=== PATIENT | female | born 1995 | race Caucasian/White ===

== ENCOUNTER 2018-08-04 10:58 | Inpatient (IN) | payer OTHER ==
[2018-08-04 11:57] LABS: HEMOGLOBIN 12.2 g/dl (12.0-15.5); MEAN CORPUSCULAR HEMOGLOBIN 31.4 pg (27.0-33.0); MEAN CORPUSCULAR HGB CONC 33.9 g/dl (32.0-36.5); MEAN CORPUSCULAR VOLUME 92.8 fl (80.0-96.0); PLATELET COUNT, AUTOMATED 126 10^3/uL (150-450); RED BLOOD COUNT 3.88 10^6/uL (4.00-5.40); RED CELL DISTRIBUTION WIDTH 13.1 % (11.5-14.5); WHITE BLOOD COUNT 8.5 10^3/uL (4.0-10.0)
[2018-08-04] MEDS: OXYTOCIN DRIP 30 UNITS in APPROPRIATE DILUENT 1 EA IV ×2 (16:19→20:28)
[2018-08-04] MEDS: LR 1,000 ML IV (16:19)
[2018-08-04] MEDS ORDERED: DOCUSATE SODIUM 100 MG CAP PO (20:30)
[2018-08-04] MEDS ORDERED: MEASLES,MUMPS,RUBELLA VACCINE INJ (MMR-II) (90707) SC (20:30)
[2018-08-04] MEDS ORDERED: DIBUCAINE 1% OINTMENT 30GM TOP (20:30)
[2018-08-04] MEDS: ACETAMINOPHEN 500 MG TAB PO (22:41)
[2018-08-05] MEDS ORDERED: LIDOCAINE 1% MDV 20ML VIAL As Ordered (03:31)
[2018-08-05] MEDS: IBUPROFEN 800 MG TAB PO ×2 (03:32→14:01)
[2018-08-05] MEDS: LIDOCAINE 1% MDV 20ML VIAL SC (03:45)
[2018-08-05] MEDS: PRENATAL VITAMINS CHEWABLE TABLET PO (09:41)
[2018-08-05] MEDS: ACETAMINOPHEN 500 MG TAB PO ×2 (09:42→21:59)
[2018-08-05] MEDS ORDERED: SLF 3 ML SYR IV ×2 (09:45→14:00)
[2018-08-05] MEDS: RHOGAM 300 MCG (1500 IU) INJ (J2790) IM (12:39)
[2018-08-06] MEDS: PRENATAL VITAMINS CHEWABLE TABLET PO (09:52)
[2018-08-06] MEDS: IBUPROFEN 800 MG TAB PO (09:57)
== END 2018-08-06 13:20 | disposition home or self-care (01) | DRG 775 ==
LOC: M LDI 10:58 → M OBS 23:25
PROVIDERS: Obstetrics & Gynecology
PROC: 10E0XZZ Delivery of Products of Conception, External Approach (ICD-10-PCS; principal; 2018-08-04)
PROC: 0KQM0ZZ Repair Perineum Muscle, Open Approach (ICD-10-PCS; 2018-08-04)
DX: O48.0 Post-term pregnancy (principal); Z37.0 Single live birth; Z3A.40 40 weeks gestation of pregnancy; O69.81X0 Labor and delivery complicated by cord around neck, without compression, not applicable or unspecified; O70.1 Second degree perineal laceration during delivery

== ENCOUNTER 2019-09-20 02:11 | Inpatient (IN) | payer OTHER ==
[2019-09-20] VITALS (15 sets, daily range): BP systolic 112–145; BP diastolic 70–85
[~2019-09-20] VITALS: Ht 162.6 cm; Wt 64.1 kg
[~2019-09-20 02:11] MED LIST: COLA100C5 PO; IBUP-1114 PO; NUPE10OI TOP; PRENTAB9 PO; TYLE325T5 PO
[2019-09-20 03:57] LABS: HEMATOCRIT 36.3 % (36.0-47.0); HEMOGLOBIN 11.6 g/dl (12.0-15.5); MEAN CORPUSCULAR HEMOGLOBIN 29.3 pg (27.0-33.0); MEAN CORPUSCULAR VOLUME 91.7 fl (80.0-96.0); PLATELET COUNT, AUTOMATED 126 10^3/uL (150-450); RED BLOOD COUNT 3.96 10^6/uL (4.00-5.40); WHITE BLOOD COUNT 6.3 10^3/uL (4.0-10.0)
[2019-09-20] MEDS ORDERED: LR 1,000 ML IV SCH (04:48)
[2019-09-20] MEDS ORDERED: OXYTOCIN 30 UNITS IN 0.9% NaCl 500ML IV BAG (J2590) As Ordered ONE ×2 (06:47→08:50)
[2019-09-20 08:15] LABS: CORD GAS ABE A -0.7; CORD GAS HCO3 A 23.7 MEQ/L; CORD GAS PCO2 A 38.7 mmHg; CORD GAS PH A 7.405 UNITS; CORD GAS PO2 A 44.9 mmHg; CORD GAS SBC A 23.4 MEQ/L; CORD GAS TCO2 A 24.9 MEQ/L
[2019-09-20 08:16] LABS: CORD GAS ABE V -0.6; CORD GAS HCO3 V 23.5 MEQ/L; CORD GAS O2 SAT V 90.3 %; CORD GAS PCO2 V 37.1 mmHg; CORD GAS PH V 7.42 UNITS; CORD GAS PO2 V 44.6 mmHg; CORD GAS SBC V 23.8 MEQ/L; CORD GAS TCO2 V 24.7 MEQ/L
[2019-09-20 08:17] LABS: CORD GAS O2 SAT A 81.3 %
[2019-09-20] MEDS ORDERED: ANUSOL HC CREAM 30GM TOP PRN (09:00)
[2019-09-20] MEDS ORDERED: ACETAMINOPHEN TAB 650MG DOSE (2X325MG) PO PRN (09:00)
[2019-09-20] MEDS ORDERED: OXYTOCIN DRIP 30 UNITS in IV 1 EA IV ONE (09:00)
[2019-09-20] MEDS ORDERED: IBUPROFEN 600 MG TAB PO PRN (09:00)
[2019-09-20] MEDS ORDERED: DIBUCAINE 1% OINTMENT 30GM TOP PRN (09:00)
[2019-09-20] MEDS ORDERED: METHYLERGONOVINE MALEATE 0.2 MG TAB PO PRN (09:00)
[2019-09-20] MEDS ORDERED: MEASLES,MUMPS,RUBELLA VACCINE INJ (MMR-II) (90707) SC SCH (09:00)
[2019-09-20] MEDS ORDERED: IBUPROFEN 800 MG TAB PO PRN (09:00)
[2019-09-20] MEDS ORDERED: miSOPROStol 200 MCG TAB (S0191) PR ONE (09:00)
[2019-09-20] MEDS ORDERED: OXYTOCIN INJ 10 UNITS/ML VIAL (J2590) IV ONE (09:00)
[2019-09-20] MEDS ORDERED: RHOGAM 300 MCG (1500 IU) INJ (J2790) IM SCH (09:00)
[2019-09-20] MEDS ORDERED: ACETAMINOPHEN 500 MG TAB PO PRN (09:00)
[2019-09-20] MEDS ORDERED: DOCUSATE SODIUM 100 MG CAP PO PRN (09:00)
[2019-09-20] MEDS ORDERED: MOM 30ML SUSPENSION UDC PO PRN (09:00)
[2019-09-20] MEDS ORDERED: OXYTOCIN DRIP 30 UNITS in IV 1 EA IV SCH (09:45)
[2019-09-20] MEDS: PRENATAL VITAMINS CHEWABLE TABLET PO SCH (09:46)
[2019-09-20] MEDS ORDERED: miSOPROStol 200 MCG TAB (S0191) As Ordered ONE (12:37)
--- NOTE | 2019-09-20 14:09 | HPE ---
DATE OF ADMISSION: 09/20/2019 HISTORY: A 24-year-old 3, para 1, abortus 1, last menstrual period (LMP) 12/13/2018, estimated date of confinement (EDC) 09/19/2019 at 41 weeks of gestation, active labor, 4 cm dilated. RISK FACTORS: 1. Short interval pregnancies. 2. Post dates. PAST HISTORY: 1. 12/07/2016, spontaneous at 10 weeks. 2. 08/04/2018, spontaneous vaginal delivery female, 9 pounds, with cleft lip and palate named Josette. LABORATORIES: O positive, HIV negative, hepatitis negative, rapid plasma reagin (RPR) negative, rubella immune. Varicella immune. Pap normal. Urine negative. Gonorrhea, chlamydia negative. Early 1-hour glucose 126, glucose tolerance test (GTT) at 28 weeks is 90. group B Streptococcus (GBS) is negative. Presently blood pressure 122/70, respirations are 18, pulse 61, temperature 97.8. Hemoglobin 11.6, hematocrit 36.3 and platelets are 126. Urine is not available. On examination, there is a category 1 strip, 4 cm dilated contractions were 2-6 minutes moderate intensity. No vaginal loss or bleeding. Active labor at term. The rest examination unremarkable. She is normocephalic, atraumatic. Neck full range of motion. Pupils equal and reactive to light. Distal pulses are symmetric. No evidence of deep venous thrombosis (DVT), pulmonary embolism (PE) or superficial phlebitis. CHEST: Clear bilaterally to bases. No wheezes or rhonchi. ABDOMEN: Soft. Four quadrant bowel sounds are noted. She has no rashes, lesions or pruritus. No arthralgia or myalgia. No complaint of joint pain. No complaint of cough, wheeze, shortness of breath or dyspnea on exertion. No bleeding. Neuro complete. No issues of incontinency, urgency or frequency. No nausea, vomiting, diarrhea or constipation. No diabetic issues. PAST GYNECOLOGIC HISTORY: Unremarkable. MEDICAL AND SURGICAL HISTORY: Unremarkable. FAMILY HISTORY: Noncontributory. She does not smoke, drink or abuse drugs. She is and there is no domestic violence. We discussed the consent for vaginal delivery, which the baby through the vagina, if possible, assistance of forceps or vacuum devices if needed, for maternal and indications forceps or vacuum or device that can be assist with vaginal delivery when normal pushing efforts cannot achieve delivery on their own or when delivery is needed in emergency for the baby's well-being. Medications may be used to induce or augment labor in order achieve vaginal delivery. Episiotomy may be required to help the baby deliver vaginally. You may also require repair of laceration or tears to the vagina or vulva that are created or caused by the delivery in some cases and emergencies can also arise which occur where section delivery is required imminently that there is no time for consent, but physician will stop and discuss the medical indications for section. This is an incision through your abdomen deliver so that we have safe passage for baby because sometimes it is safer for mother and baby than continuing labor and again, this is only performed with clinical indications. Risks of vaginal delivery include, but not limited to, bleeding, infection, injury to vagina, pelvic structures, baby, damage to the uterus through reaction to anesthesia, uterine rupture, risk of hysterectomy for life-threatening bleeding or . Medications used to augment her induce labor may increase risks of infection, uterine tachysystole, uterine rupture , heart rate abnormalities, need for emergency section or possible hysterectomy for hemorrhage. In addition, use of vacuum or forceps may include scratches, hematomas of the head or intracranial bleed. The other issues, shoulder dystocia, having had a previous baby of 9 pounds, there is still a risk of shoulder dystocia, which means there may be trauma to either the shoulder, the bones and there can sometimes be permanent neurological damage. The patient expressed understanding and safe to proceed after all questions were answered, a 40-minute discussion. The patient is planning on walking. does not request or wishes to have an epidural or anything for pain management.
--- NOTE | 2019-09-20 19:35 | DN ---
DATE: 09/20/2019 DELIVERY NOTE: This lady is a 24-year-old 3 admitted in spontaneous labor at 41 weeks of gestation. She had a spontaneous vaginal delivery of a female infant weighing 8 pounds 10 ounces, 3900 grams, scores of nine and ten at 1 and 5 minutes respectively. Cord was around the neck times one loose. Arterial pH 7.40, base excess -0.7, venous pH 7.42, base excess -0.6. She was pushing involuntarily against the cervix and had an anterior lip of the cervix which was quite edematous but pushed the baby through that and had a spontaneous delivery of the placenta, three-vessel membranes and tissues intact. She had a dilate atonic uterus requiring Cytotec 1000 mg per rectum. On evaluation she has significant prolapse because of poor tissue turgor. Her cervix was prolapsed. The introitus markedly swollen. She had an extension on the right side of the cervix which was not bleeding and was not repaired as there was no evidence of any active bleeding. She has significant varicosities on the right vulva, all of which disappeared except for one, and she has significant varicosities in her legs, which subsequently are resolving and she is wearing her SCDs. She also has anemia as per her past history. Eventually the uterus contracted well down on Pitocin and Cytotec. The cervix was evaluated and outside of being edematous and prolapsing, no significant bleeding was noted from there. Anterior, posterior, and lateral laguerre were intact. Sphincter was tight, demonstrated placing the Cytotec per rectum. The patient and baby are tolerating procedure well.
[2019-09-21 06:19] LABS: HEMATOCRIT 30.3 % (36.0-47.0); HEMOGLOBIN 9.9 g/dl (12.0-15.5); MEAN CORPUSCULAR HEMOGLOBIN 29.8 pg (27.0-33.0); MEAN CORPUSCULAR HGB CONC 32.7 g/dl (32.0-36.5); MEAN CORPUSCULAR VOLUME 91.3 fl (80.0-96.0); PLATELET COUNT, AUTOMATED 113 10^3/uL (150-450); RED BLOOD COUNT 3.32 10^6/uL (4.00-5.40); WHITE BLOOD COUNT 7.3 10^3/uL (4.0-10.0)
[2019-09-21] MEDS ORDERED: ACET-683 PO (06:20)
[2019-09-21] MEDS ORDERED: DIBU10OI TOP (06:20)
[2019-09-21] MEDS ORDERED: PROC1CRE5 TOP (06:20)
[2019-09-21] MEDS ORDERED: DOCU100C16 PO (06:20)
[2019-09-21] MEDS ORDERED: IBUP80TA PO (06:20)
[2019-09-21 06:26] VITALS: BP 107/70
[2019-09-21] MEDS: PRENATAL VITAMINS CHEWABLE TABLET PO SCH (09:24)
--- NOTE | 2019-09-21 12:33 | DSES ---
DATE OF ADMISSION: 09/20/2019 DATE OF DISCHARGE: 09/21/2019 This lady is a 24-year-old, 3, now para 2 admitted in spontaneous labor at 40 and 1 weeks of gestation, spontaneous vaginal delivery, live female infant, 8 pounds 10 ounces, 3900 grams, scores of 9 and 10 at 1 and 5 minutes, respectively. Cord around the neck times one, loose. Placenta delivered spontaneously thereafter. Three-vessel cord. Membranes and tissues intact. She had significant cervical prolapse. She had a bit of atony of her uterus, which was counteracted by Cytotec. She has longstanding anemia and significant varicose veins in her labia, which tended to resolve immediately after delivery. First day, we discussed phlebitis, cystitis, mastitis, endometritis, cellulitis, diet, exercise pain management, perineal/breast/wound care. She is planning on an IUCD at a 6-week checkup. She was dispensed medications upon discharge. She has a 6-week checkup at [facility]. In summary, we have a term gestation delivered a live female infant. No issues. Baby will be evaluated by Dr. Chaves for possible discharge later today.
== END 2019-09-21 10:45 | disposition home or self-care (01) | DRG 807 ==
LOC: M LDO 02:11 → M LDI 04:56 → M OBS 10:43
PROVIDERS: ADMIT Obstetrics & Gynecology; ATTEND Obstetrics & Gynecology
PROC: 10E0XZZ Delivery of Products of Conception, External Approach (ICD-10-PCS; principal; 2019-09-20)
DX: O48.0 Post-term pregnancy (principal); Z37.0 Single live birth; Z3A.40 40 weeks gestation of pregnancy; O69.81X0 Labor and delivery complicated by cord around neck, without compression, not applicable or unspecified; O75.89 Other specified complications of labor and delivery; O99.02 Anemia complicating childbirth; D64.9 Anemia, unspecified; O22.13 Genital varices in pregnancy, third trimester